=== PATIENT | female | born 1990 | race Caucasian/White ===

== ENCOUNTER → 2017-07-24 01:21 | Observation (INO) ==
--- OUTSIDE RECORDS SUMMARY | 2017-07-23 12:06 | External Medical Summary | Continuity of Care Document ---
:1990 [facility] Address [address] [place], [place] [phone] Phone Care Team Providers Name Role Phone Rosanne Lopes MD Unavailable Unavailable Allergies, Adverse Reactions, Alerts Substance Reaction Severity Status No Known Drug Allergies Unknown Active Medications Medication Instructions Dosage Effective Dates Status Comments (start - stop) Aspir-81 81 mg take 1 tablet by 81 MG - Active tablet,delayed oral route every release day Tylenol Extra take 2 tablet by 1000 MG - Active Strength 500 mg oral route every 6 tablet hours as needed as needed 28 mg take 1 by Oral route Not Available - Active iron-800 mcg every day tablet Problems Condition Effective Dates (start - stop) Clinical Status Supervision of other high risk - pregnancies, first trimester Supervision of other high risk - pregnancies, first trimester Supervision of other high risk - pregnancies, first trimester Less than 8 weeks gestation of - Supervision of other high risk - pregnancies, first trimester Previous Low Transverse - 10 weeks gestation of - Procedures Procedure Date Unknown Results Test Name Date and Time Measure Units Reference Range Abnormal Flag Comments Unknown Advance Directives Directive Yes / No Effective Date File Name Unknown Encounters Encounter Practice Location Reason(s) Diagnoses Date Provider Care Description For Visit Team Members Pb [place] Supervision of other [facility], first 7 700 PO Box trimesterPrevious Low Medical 1522, Transverse [facility] [place], [id number] weeks Shamar Gilman, gestation of 120, , [place], [place], tel:[phone] , [place]. tel:[phone] Pb [place] Aug-2 Joel In Womens 9-201 [facility], 7 700 [address] Medical [address], [place], Shamar Gilman, 120, [id number], [place], tel:[phone] , [place]. tel: [phone] Pb [place] Supervision of other Aug-2 Joel In Womens high risk 3-201 [facility], pregnancies, first 7 700 PO Box trimesterLess than 8 Medical 1522, weeks gestation of [facility], Shamar Gilman, 120, [id number], [email or web address] [place], tel:[phone] , [place]. tel: [phone] Pb [place] Supervision of other Aug-1 Joel In Womens high risk 0-201 [facility], pregnancies, first 7 700 PO Box trimesterSupervision Medical 1522, of other high risk [facility], pregnancies, first Shamar Gilman, trimester 120, , [place], tel:[phone] , [place]. tel: [phone] Family History Family Member Diagnosis Age At Onset Paternal Grandmother Hypertension Maternal Grandmother Hypertension Maternal Grandmother Thyroid Disorder Maternal Grandfather Lung Disease Maternal Grandmother Cardiovascular Disease Mother Thyroid Disorder Mother Hypertension Immunizations Vaccine Date Status Comments Unknown Payers Payer name Insurance type Covered alliance party ID Authorization(s) [facility] CI [id number] Social History Type Description Quantity Date Captured Unknown Vital Signs Date / Height Weight BMI Pulse Blood Temperature Respiratory Body Head BMI Time: Rate Pressure Rate Surface Circumference percentile Area Unknown Chief Complaint And Reason For Visit Unknown Chief Complaint And Reason For Visit Reason For Referral Reason For Referral Unknown Plan Of Care Date Type Action Status Appointment [facility] BOOKED Date Type Problem Goal Intervention Status Start Date Unknown. History Of Present Illness Encounter Date Complaint History Of Present Illness This patient has no known history of present illness Functional Status Encounter Date Functional Assessment Cognitive Assessment Unknown Medications Administered Medication Instructions Dosage Effective Dates (start - stop) Status Comments Drug Treatment Unknown Instructions Date Instruction Additional Information HIV and other routine tests risk factors identified by history anticipated course of care nutrition and weight gain counseling, special diet toxoplasmosis precautions (cats / raw meat) sexual activity exercise indications for ultrasound influenza vaccine environmental / work hazards travel use of any medications (including supplements, vitamins, herbs, OTC drugs) domestic violence seat belt use childbirth classes / hospital facilities hospital registration genetic testing Zika virus assessment & precautions
--- OUTSIDE RECORDS SUMMARY | 2017-07-23 12:06 | External Medical Summary ---
:1991 Author Organization [facility]. Summary purpose CCDA Sent to [facility] Chief Complaint and Reason for Visit Admit Diagnosis 1 JOINT PAIN-ANKLE Problem list No authorized problems tracked for continuity of care are available for this visit. Encounters No authorized problems tracked for encounter diagnoses are available for this visit. Medications Home Medications Medication Directions Started Status Source Depo 1 unknown injection See medication notes Current every 3 months ibuprofen 200 mg capsule 800 mg oral As Needed Every 8 Hours Current Allergies, adverse reactions, alerts Allergen Category Ingredient Status Reaction Severity Onset No Known Allergies No Known Allergies No Known Allergies Active Immunizations No immunizations recorded for this patient visit Relevant diagnostic tests and/or laboratory data No authorized results are available for this patient visit History of procedures Procedure Code Code Type Description Date Performed Performing Physician L4350 CPT-4 ANKLE CONTROL ORTHO PRE 01-05-2015 [facility] OTS 24590 CPT-4 X-RAY EXAM OF ANKLE 01-05-2015 [facility] 10017 CPT-4 APPLICATION LOWER LEG 01-05-2015 [facility] SPLINT 25301 CPT-4 EMERGENCY DEPT VISIT 01-05-2015 [facility] Functional status Cognitive Status Finding Observation Time Level of Consciousne Alert 76-42-875469:00 Oriented to Person Yes 83-02-032790:[address] Yes 15-50-959052:00 Oriented to Time Yes 86-02-081646:00 Vital signs Type Value Date Respirations 20 14-84-557137:50 Pulse 96 36-22-765329:50 O2 Saturation 98% 47-55-615376:50 Systolic Blood Press 132mm/HG 56-78-604879:50 Diastolic Blood Pres 82mm/HG 35-47-273013:50 Height 65in 08-75-888823:50 Weight 160LB 98-06-591986:50 Social history Type Value Smoking Status FORMER SMOKER Treatment Plan No treatment plan text is available for this visit. Hospital discharge instructions No discharge instruction text is available for this visit.
--- OUTSIDE RECORDS SUMMARY | 2017-07-23 12:06 | External Medical Summary | Continuity of Care Document ---
:1990 Author Organization [facility] Address [address] [place] [phone] Phone Care Team Providers Name Role Phone Rosanne Lopes MD Unavailable Unavailable Allergies, Adverse Reactions, Alerts Substance Reaction Severity Status No Known Drug Allergies Unknown Active Medications Medication Instructions Dosage Effective Dates Status Comments (start - stop) Aspir-81 81 mg take 1 tablet by 81 MG - Active tablet,delayed oral route every release day 28 mg take 1 by Oral route Not Available - Active iron-800 mcg every day tablet Tylenol Extra take 2 tablet by 1000 MG - Active Strength 500 mg oral route every 6 tablet hours as needed as needed Problems Condition Effective Dates (start - stop) [...] weeks gestation of - Procedures Procedure Date OB Visit No Charge Results Test Name Date and Time Measure Units Reference Range Abnormal Flag Comments Panel Description: CHLAMYDIA/N. GONORRHOEAE RNA, TMA CHLAMYDIA NOT DETECTED NOT DETECTED N TRACHOMATIS RNA, 16:27:00 TMA NEISSERIA NOT DETECTED NOT DETECTED N GONORRHOEAE RNA, 16:27:00 TMA [id number] SEE NOTE This test was 16:27:00 performed using the APTIMA COMBO2 Assay([employer] The analytical performance characteristics of this assay, when used to test SurePath specimens havebeen determined by [email or web address]. REPORT COMMENT:FASTING:UNKNO WNTest performed at [facility] [id number] [place] [address]Obrsoylw: CHAS MIKE DO,MPH Advance Directives Directive Yes / No Effective Date File Name Unknown Encounters Encounter Practice Location Reason(s) Diagnoses Date Provider Care Description For Visit Team Members [facility] Supervision of other Sep-0 Joel In Womens high risk 6-201 [facility], pregnancies, first 7 700 PO Box trimesterPrevious Low Medical 1522, Transverse [facility], [id number] weeks Shamar Gilman, gestation of 120, , [facility] [place], tel:[phone] , [place]. tel: [phone] [facility] Supervision of other Aug-2 Joel In Womens high risk 3-201 [facility], pregnancies, first 7 700 PO Box trimesterLess than 8 Medical 1522, weeks gestation of [facility], Shamar Gilman, 120, [id number], [facility] [place], tel:[phone] , [place]. tel: [phone] [facility] Supervision of other Aug-1 Joel In Womens high risk 0-201 [facility], pregnancies, first 7 700 PO Box trimesterSupervision Medical 1522, of other high risk [facility], pregnancies, first Shamar Gilman, trimester 120, , [facility] [place], tel:[phone] , [place]. tel: [phone] Family History Family Member Diagnosis Age At Onset Paternal Grandmother Hypertension Maternal Grandmother Hypertension Maternal Grandmother Thyroid Disorder Maternal Grandfather Lung Disease Maternal Grandmother Cardiovascular Disease Mother Thyroid Disorder Mother Hypertension Immunizations Vaccine Date Status Comments Unknown Payers Payer name Insurance type Covered democrat ID Authorization(s) [facility] CI [id number] Social History Type Description Quantity Date Captured Alcohol Use Details Unknown Caffeine Use Details Unknown Tobacco Use Status Unknown Smoking Status Never smoker Vital Signs Date / Height Weight BMI Pulse Blood Temperature Respiratory Body Head BMI Time: Rate Pressure Rate Surface Circumference percentile Area 164.80 27.0 133/82 2017 lbs 9 mm[Hg] 5:23 kg/m PM eter (2) Chief Complaint And Reason For Visit Unknown [...]
--- OUTSIDE RECORDS SUMMARY | 2017-07-23 12:06 | External Medical Summary | Continuity of Care Document ---
:1990 Author Organization [facility] Address [address] [place] [phone] Phone Care Team Providers Name Role Phone [...] Less than 8 weeks gestation of - Suprvsn of preg w poor reprodctv or - obstet hx, second tri Supervision of other high risk - pregnancies, second trimester Previous Low Transverse - 14 weeks gestation of - Suprvsn of preg w poor reprodctv or - obstet hx, second tri Supervision of other high risk - pregnancies, second trimester Previous Low Transverse - 19 weeks gestation of - Suprvsn of preg w poor reprodctv or - obstet hx, second tri Supervision of other high risk - pregnancies, second trimester Previous Low Transverse - 22 weeks gestation of - Suprvsn of preg w poor reprodctv or - obstet hx, second tri Supervision of other high risk - pregnancies, second trimester Previous Low Transverse - 19 weeks gestation of - Supervision of other [...] Description For Visit Team Members Pb [place] Suprvsn of preg w Nov-2 Joel In Womens poor reprodctv or 7-201 [facility], obstet hx, second 7 700 [address] triSupervision of Medical 1522, other high risk [facility] pregnancies, second Shamar Gilman, trimesterPrevious 120, [id number], Low Transverse [place], [place] C-[id number] weeks [place], tel:[phone] gestation of [phone] , [place]. tel: [phone] Pb [place] Nov-1 Joel In Womens 5-201 [facility], 7 700 [address] Medical [address], [facility], Shamar Gilman, 120, [id number], [place], tel:[phone] [id number] , [place]. tel: [phone] Pb [place] Suprvsn of preg w Nov-0 Joel In Womens poor reprodctv or 8-201 [facility], obstet hx, second 7 700 PO Box triSupervision of Medical 1522, other high risk [facility] pregnancies, second Shamar Gilman, trimesterPrevious 120, [id number], Low Transverse [place], [place] C-Uveeerw45 weeks [place], tel:[phone] gestation of [phone] [id number] , [place]. tel: [phone] Pb [place] Suprvsn of preg w Nov-0 Joel In Womens Ultrasound poor reprodctv or 8-201 [facility], obstet hx, second 7 700 PO Box triSupervision of Medical 1522, other high risk [facility] [place], pregnancies, second Shamar Gilman, trimesterPrevious 120, [id number], Low Transverse [place], C-Wjhhjta65 weeks [place], tel:[phone] gestation of [phone] [id number] , [place]. tel: [phone] Pb [place] Suprvsn of preg w Oct-0 Joel In Womens poor reprodctv or 4-201 [facility], obstet hx, second 7 700 PO Box triSupervision of Medical 1522, other high risk [facility] [place], pregnancies, second Shamar Gilman, trimesterPrevious 120, [id number], Low Transverse [place], C-Fazfqgl11 weeks [place], tel:+ gestation of [phone] [address] , [place]. tel: [phone] Pb [place] Supervision of Sep-0 Joel In Womens other high risk 6-201 [facility], pregnancies, first 7 700 PO Box trimesterPrevious Medical 1522, Low Transverse [facility], C-[id number] weeks Shamar Gilman, gestation of 120, , [place], tel:[phone] , [place]. tel: [phone] Pb [place] Supervision of Aug-2 Joel In Womens other high risk 3-201 [facility], pregnancies, first 7 700 PO Box trimesterLess than Medical 1522, 8 weeks gestation [facility], of Shamar Gilman, 120, , [place], tel:[phone] , [place]. tel: [phone] Pb [place] Supervision of Aug-1 Joel In Womens other high risk 0-201 [facility], pregnancies, first 7 700 PO Box trimesterSupervisio Medical 1522, n of other high [facility] [place], risk pregnancies, Shamar Gilman, first trimester 120, [id number], [place], tel:[phone] , [place]. tel: [phone] Family History Family Member Diagnosis Age At Onset Paternal Grandmother Hypertension Maternal Grandmother Hypertension Maternal Grandmother Thyroid Disorder Maternal Grandfather Lung Disease Maternal Grandmother Cardiovascular Disease Mother Thyroid Disorder Mother Hypertension Immunizations Vaccine Date Status Comments Unknown Payers Payer name Insurance type Covered alliance party ID Authorization(s) R CI [id number] Social History Type Description Quantity Date Captured Unknown Vital Signs Date / Height Weight BMI Pulse Blood Temperature Respiratory Body Head BMI Time: Rate Pressure Rate Surface Circumference percentile Area Unknown Chief Complaint And Reason For Visit Unknown Chief Complaint And Reason For Visit Reason For Referral Reason For Referral Unknown Plan Of Care Date Type Action Status Appointment [facility] BOOKED Future Order: Radiology Order Complete OB Ultrasound > 14 Ordered Weeks ([id number]) Date Type Problem Goal Intervention Status Start [...]
--- OUTSIDE RECORDS SUMMARY | 2017-07-23 12:06 | External Medical Summary | Continuity of Care Document ---
:1991 Author Organization [facility] Address [address] [place], [place] [phone] Phone Care Team Providers Name Role Phone Rosanne Lopes MD Unavailable Unavailable Allergies, Adverse Reactions, Alerts Substance Reaction Severity Status No Known Drug Allergies Unknown Active Medications Medication Instructions Dosage Effective Dates Status Comments (start - stop) Aspir-81 81 mg take 1 tablet by oral 81 MG - Active tablet,delayed route every day release Tylenol Extra take 2 tablet by oral 1000 MG - Active Strength 500 mg route every 6 hours tablet as needed as needed Problems Condition Effective Dates (start - stop) Clinical Status Supervision of other high risk - pregnancies, first trimester Supervision of other high risk - pregnancies, first trimester Procedures Procedure Date No Charge Sonogram No Charge Office Visit Results Test Name Date and Time Measure Units Reference Range Abnormal Flag Comments Unknown Advance Directives Directive Yes / No Effective Date File Name Unknown Encounters Encounter Practice Location Reason(s) Diagnoses Date Provider Care Description For Visit Team Members Pb [place] early Supervision of other Joel In [facility] high risk 0-201 [facility], (chief pregnancies, first 7 700 PO Box complaint) trimesterSupervision Medical 1522, of other high risk [facility] [place], pregnancies, first Shamar Gilman, trimester 120, [id number], [facility] [place], tel:[phone] [id number] , . tel:[phone] Family History Family Member Diagnosis Age At Onset Paternal Grandmother Hypertension Maternal Grandmother Hypertension Maternal Grandmother Thyroid Disorder Maternal Grandfather Lung Disease Maternal Grandmother Cardiovascular Disease Mother Thyroid Disorder Mother Hypertension Immunizations Vaccine Date Status Comments Unknown Payers Payer name Insurance type Covered alliance party ID Authorization(s) R CI [id number] Social History Type Description Quantity Date Captured Alcohol Use Details Unknown Caffeine Use Details Unknown Tobacco Use Status Never smoked tobacco Smoking Status Never smoker Non-Smoking Tobacco Use : No Details Available : No Details Available Details Vital Signs Date / Height Weight BMI Pulse Blood Temperature Respiratory Body Head BMI Time: Rate Pressure Rate Surface Circumference percentile Area 65.00 162.80 27.0 134/ in lbs 9 mm[Hg] 2:25 kg/m PM eter (2) Chief Complaint And Reason For Visit Most recent encounter only, dated '03/23/2017 14:10'. early ( chief complaint). Description: LMP 02/03/17. Prior delivered by [facility]CS 2012 at 26 weeks due to severe preeclampsia and severe IUGR. Baby lived a day. Pt is happy about this and feels well, just tired. Reason For Referral Reason For Referral Unknown Plan Of Care Date Type Action Status Appointment [facility] BOOKED Date Type Problem Goal Intervention Status Start Date Unknown. History Of Present Illness Encounter Date Complaint History Of Present Illness early LMP 02/03/17. Prior delivered by [facility]CS 2012 at 26 weeks due to severe preeclampsia and severe IUGR. Baby lived a day. Pt is happy about this and feels well, just tired. Functional Status Encounter Date Functional Assessment Cognitive Assessment Unknown Medications Administered Medication Instructions Dosage Effective Dates (start - stop) Status Comments Drug Treatment Unknown Instructions Date Instruction Additional Information Unknown
--- OUTSIDE RECORDS SUMMARY | 2017-07-23 12:06 | External Medical Summary | Continuity of Care Document ---
:1990 Author Organization [facility] Address [address] [place] [phone] Phone Care Team Providers Name Role Phone [...] other high risk - pregnancies, first trimester Suprvsn of preg w poor reprodctv or [...] Procedures Procedure Date OB Visit No Charge - [employer] Results Test Name Date and Time Measure Units Reference Range Abnormal Flag Comments Unknown Advance Directives Directive Yes / No Effective Date File Name Unknown Encounters Encounter Practice Location Reason(s) Diagnoses Date Provider Care Description For Visit Team Members Pb [place] Suprvsn of preg w Nov-2 Joel In Womens poor reprodctv or 7-201 [facility], obstet hx, second 7 700 [address] Box triSupervision of Medical 1522, other high risk [facility] [place], pregnancies, second Shamar Gilman, trimesterPrevious 120, , Low Transverse [place], [place] C-Wahywjy93 weeks [place], tel:[phone] gestation [phone] [id number] , [place]. tel:[phone] Pb [place] Suprvsn of preg w Nov-0 Joel In Womens poor reprodctv or 8-201 [facility], obstet hx, second 7 700 PO Box triSupervision of Medical 1522, other high risk [facility] [place], pregnancies, second Shamar Gilman, trimesterPrevious 120, , Low Transverse [place], [place] C-Rxcnxot72 weeks [place], tel:[phone] gestation [phone] [id number] , [place]. tel:[phone] Pb [place] Suprvsn of preg w Nov-0 Joel In Womens Ultrasound poor reprodctv or 8-201 [facility], obstet hx, second 7 700 PO Box triSupervision of Medical 1522, other high risk [facility] [place], pregnancies, second Shamar Gilman, trimesterPrevious 120, [id number], Low Transverse [place], [place] C-Uqtqiyc08 weeks [place], tel:[phone] gestation of [phone] [id number] , [place]. tel: [phone] Pb [place] of preg w Oct-0 Joel In Womens poor reprodctv or 4-201 [facility], obstet hx, second 7 700 PO Box triSupervision of Medical 1522, other high risk [facility], pregnancies, second Shamar Gilman, trimesterPrevious 120, [id number], Low Transverse [place], C-Zauimqg71 weeks [place], tel:+ gestation of [phone] [address] , [place]. tel: [phone] Pb [place] Supervision of Sep-0 Joel In Womens other high risk 6-201 [facility], pregnancies, first 7 700 PO Box trimesterPrevious Medical 1522, Low Transverse [facility], C-Kuwlpuu19 weeks Shamar Gilman, gestation of 120, , [place], [place], tel:[phone] , [place]. tel: [phone] Pb [place] Supervision of Aug-2 Joel In Womens other high risk 3-201 [facility], pregnancies, first 7 700 PO Box trimesterLess than Medical 1522, 8 weeks gestation [facility], of Shamar Gilman, 120, [id number], [facility] [place], tel:[phone] , [place]. tel: [phone] Pb [place] Supervision of Aug-1 Joel In Womens other high risk 0-201 [facility], pregnancies, first 7 700 PO Box trimesterSupervisio Medical 1522, n of other high [facility] [place], risk pregnancies, Shamar Gilman, first trimester 120, [id number], [place], tel: [phone] , [place]. tel: [phone] Family History Family Member Diagnosis Age At Onset Paternal Grandmother Hypertension Maternal Grandmother Hypertension Maternal Grandmother Thyroid Disorder Maternal Grandfather Lung Disease Maternal Grandmother Cardiovascular Disease Mother Thyroid Disorder Mother Hypertension Immunizations Vaccine Date Status Comments Unknown Payers Payer name Insurance type Covered libertarian ID Authorization(s) [facility] [id number] Social History Type Description Quantity Date Captured Alcohol Use Details No Caffeine Use Details Unknown Tobacco Use Status Never smoked tobacco Smoking Status Never smoker Vital Signs Date / Height Weight BMI Pulse Blood Temperature Respiratory Body Head BMI Time: Rate Pressure Rate Surface Circumference percentile Area 166.40 27.6 124/79 -2017 lbs 9 mm[Hg] 4:42 kg/m PM eter (2) Chief Complaint And Reason For Visit Unknown Chief Complaint And Reason For Visit Reason For Referral Reason For Referral Unknown Plan Of Care Date Type Action Status Appointment [facility] BOOKED Future Order: Radiology Order Complete OB Ultrasound > 14 Ordered Weeks ([id number]) Date Type Problem Goal Intervention Status Start [...]
--- OUTSIDE RECORDS SUMMARY | 2017-07-23 12:07 | External Medical Summary | Continuity of Care Document ---
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 Advance Directives Directive Yes / No Effective Date File Name Unknown Encounters Encounter Practice Location Reason(s) Diagnoses Date Provider Care Description For Visit Team Members [facility]vision of other [facility] high [facility] 6-[facility], first 7 700 PO Box trimesterPrevious Low Medical 1522, [facility] [place], C-Zbtnkhn19 weeks Shamar Gilman, [facility] 120, , [facility] [place], tel: [phone] , [place]. tel: [phone] [facility] Supervision of other Mar- Joel In Womens high risk 3-201 [facility] [place], pregnancies, first 7 700 PO Box trimesterLess than 8 Medical 1522, weeks gestation of [facility], Shamar Gilman, 120, , [facility] [place], tel: [phone] , [place]. tel: [phone] Pb [place] Supervision of other Mar- [place] In Womens high risk 0-201 [facility] [place], pregnancies, first 7 700 PO Box trimesterSupervision Medical 1522, of other high risk [facility] [place], pregnancies, first Shamar Gilman, trimester 120, , [facility] [place], tel:[phone] , [place]. tel: [phone] Family History Family Member Diagnosis Age At Onset Paternal Grandmother Hypertension Maternal Grandmother Hypertension Maternal Grandmother Thyroid Disorder Maternal Grandfather Lung Disease Maternal Grandmother Cardiovascular Disease Mother Thyroid Disorder Mother Hypertension Immunizations Vaccine Date Status Comments Unknown Payers Payer name Insurance type Covered libertarian ID Authorization(s) [facility] CI [id number] Social History Type Description Quantity Date Captured Alcohol Use Details No Caffeine Use Details Unknown Tobacco Use Status Never smoked tobacco Smoking Status Never smoker Non-Smoking Tobacco Use : No Details Available : No Details Available Details Vital Signs Date / Height Weight BMI Pulse Blood Temperature Respiratory Body Head BMI Time: Rate Pressure Rate Surface Circumference percentile Area 162.70 27.0 131/ lbs 7 mm[Hg] 3:46 kg/m PM eter (2) Chief Complaint And [...]
--- OUTSIDE RECORDS SUMMARY | 2017-07-23 12:07 | External Medical Summary | Continuity of Care Document ---
:1991 Author Organization [facility] Address [address] [place] [phone] Phone Care Team Providers Name Role Phone [...] weeks gestation of - Procedures Procedure Date No Charge Sonogram No Charge Office Visit OB Prepayment Agreement Results Test Name Date and Time Measure Units Reference Range Abnormal Flag Comments Panel Description: OBSTETRIC PANEL WHITE BLOOD CELL 10.3 Thousand/uL 3.8-10.8 N COUNT 14:56:00 RED BLOOD CELL 4.82 Million/uL 3.80-5.10 N COUNT 14:56:00 HEMOGLOBIN 13.7 g/dL 11.7-15.5 N 14:56:00 HEMATOCRIT 40.3 % 35.0-45.0 N 14:56:00 MCV 83.6 fL 80.0-100.0 N 14:56:00 MCH 28.4 pg 27.0-33.0 N 14:56:00 MCHC 34.0 g/dL 32.0-36.0 N 14:56:00 RDW 12.5 % 11.0-15.0 N 14:56:00 PLATELET COUNT 276 Thousand/uL 140-400 N 14:56:00 MPV 10.6 fL 7.5-12.5 N 14:56:00 ABSOLUTE 6355 cells/uL 9365-9856 N NEUTROPHILS 14:56:00 ABSOLUTE 3018 cells/uL 850-3900 N LYMPHOCYTES 14:56:00 ABSOLUTE 700 cells/uL 200-950 N MONOCYTES 14:56:00 ABSOLUTE 196 cells/uL 15-500 N EOSINOPHILS 14:56:00 ABSOLUTE 31 cells/uL 0-200 N BASOPHILS 14:56:00 NEUTROPHILS 61.7 % N 14:56:00 LYMPHOCYTES 29.3 % N 14:56:00 MONOCYTES 6.8 % N 14:56:00 EOSINOPHILS 1.9 % N 14:56:00 BASOPHILS 0.3 % N 14:56:00 ANTIBODY SCREEN, NO ANTIBODIES N RBC W/REFL ID, 14:56:00 DETECTED Reference range TITER AND AG No antibodies detected This assay is a screening test for the detection of red blood cell antibodies. The test is not to be used for pretransfusion screening or for the medical management of an alloimmunized . ABO GROUP A 14:56:00 RH TYPE RH(D) 14:56:00 POSITIVE RPR (DX) W/REFL NON-REACTIVE NON-REACTIV N TITER AND 14:56:00 E CONFIRMATORY TESTING HEPATITIS B NON-REACTIVE NON-REACTIV N SURFACE ANTIGEN 14:56:00 E RUBELLA ANTIBODY 1.05 index N Index (IGG) 14:56:00 Interpretation ----- <0.90 Not consistent with Immunity 0.90-0.99 Equivocal > or=1.00 Consistent with Immunity The presence of rubella IgG antibody suggests immunization or past or current infection withrubella virus.Test performed at [facility] [id number] [place] [id number] r: CHAS MIKE DO,MPH Panel Description: HIV 1/2 ANTIGEN/ANTIBODY,FOURTH GENERATION W/RFL HIV NON-REACTIVE NON-REACTIVE N HIV-1 antigen and HIV-1/HIV- 2 antibodies were AG/AB, 14:56:00 notdetected. There is no laboratory evidence of 4TH GEN HIVinfection. PLEASE NOTE: This information has been disclosed toyou from records whose confidentiality may beprotected by state law. If your state requires suchprotection, then the state law prohibits you frommaking any further disclosure of the informationwithout the specific written consent of the personto whom it pertains, or as otherwise permitted by law.A general authorization for the release of medical orother information is NOT sufficient for this purpose. For additional information please refer tohttp://education.Populis/faq/ZDZ618(This link is being provided for informational/educational purposes only.) The performance of this assay has not been clinicallyvalidated in patients less than 2 years old. Test performed at [facility] [address] [address]Errolllp: CHAS MIKE DO,MPH Panel Description: TSH W/REFLEX TO FT4 TSH W/REFLEX TO FT4 14:56:00 0.81 mIU/L N Reference Range > or=20 Years 0.40-4.50 Ranges First trimester 0.26-2.66 Second trimester 0.55-2.73 Third trimester 0.43-2.91Test performed at [facility] [address] [address]Corbeclz: CHAS MIKE DO,MPH Panel Description: Bacteria identified in Urine by Culture CULTURE, URINE, 15:09:00 SEE NOTE CULTURE, URINE, ROUTINE ROUTINE MICRO NUMBER: [id number] TEST STATUS: FINAL SPECIMEN SOURCE: URINE SPECIMEN QUALITY: ADEQUATE RESULT: Single organism less than 10,000 CFU/mL isolated. These organisms, commonly found on external and internal genitalia, are considered colonizers. No further testing performed.REPORT COMMENT:RTest performed at [facility] [id number] [place] [address]Znfbnlbt: CHAS MIKE DO,MPH Advance Directives Directive Yes / No Effective Date File Name Unknown Encounters Encounter Practice Location Reason(s) Diagnoses Date Provider Care Description For Visit Team Members [facility] Supervision of other [place] In Womens high risk 3-201 [facility] [place], pregnancies, first 7 700 PO Box trimesterLess than 8 Medical 1522, weeks gestation of [facility] Shamar Gilman, 120, , [facility] [place], tel:[phone] , [place]. tel: [phone] Pb hinds Supervision of other Mar- Joel In Womens high risk 0-201 Bhavani. [facility], (chief pregnancies, first 7 700 [address] complaint) trimesterSupervision Medical 1522, of other high risk [facility], pregnancies, first Shamar Gilman, trimester 120, , [facility] [place], tel: [phone] , [place]. tel: [phone] Family History Family Member Diagnosis Age At Onset Paternal Grandmother Hypertension Maternal Grandmother Hypertension Maternal Grandmother Thyroid Disorder Maternal Grandfather Lung Disease Maternal Grandmother Cardiovascular Disease Mother Thyroid Disorder Mother Hypertension Immunizations Vaccine Date Status Comments Unknown Payers Payer name Insurance type Covered libertarian ID Authorization(s) [facility] CI [id number] Social History Type Description Quantity Date Captured Alcohol Use Details Unknown Caffeine Use Details Unknown Tobacco Use Status Never smoked tobacco Smoking Status Never smoker Non-Smoking Tobacco Use : No Details Available : No Details Available Details Vital Signs Date / Height Weight BMI Pulse Blood Temperature Respiratory Body Head BMI Time: Rate Pressure Rate Surface Circumference percentile Area 65.00 162.80 27.0 134/83 -2017 in lbs 9 mm[Hg] 2:25 kg/m PM [...]
--- OUTSIDE RECORDS SUMMARY | 2017-07-23 12:07 | External Medical Summary | Continuity of Care Document ---
:1991 Author Organization [facility] Allergies Active Description Code Type Severity Reaction Onset Reported/ Identified Relationship Clinical to Patient Status Yes No Known 65027 3 N/A N/A Drug 0 Allergies Yes No Known 98403 NK N/A N/A 06/04/2012 Allergies 388 Yes No Known Drug 10/10/2012 Drug Aller Allergies gy Medications Medication Packaging Start Date Stop Date Route Dosage Sig Tablet 03/23/2017 ASPIR 81 take 1 tablet by oral route every day Problems Date Dx Attending Type Code Diagnosis Diagnosed By Coded 12/28/2009 D 305.92 DRUG ABUSE NEC-EPISODIC 01/01/2010 D 307.81 TENSION HEADACHE 06/05/2012 D 008.8 VIRAL ENTERITIS NOS 06/05/2012 A 789.07 ABDOMINAL PAIN GENERALIZ 06/05/2012 D V22.1 SUPERVIS OTH NORMAL PREG 10/08/2012 D 642.40 MILD/NOS PREECLAMP-UNSP 10/10/2012 Nayeli DORMAN, Admitting 642.43 MILD/NOS Yvette B ANZ-KESWP-OR 10/10/2012 Nayeli DORMAN, Final 642.51 SEVERE Yvette B MPI-HXUYJ-MND 10/10/2012 Nayeli DORMAN, Final 644.21 EARLY ONSET Yvette B DELIVERY-DEL 10/10/2012 Nayeli DORMAN, Final 652.01 UNSTABLE Yvette B LIE-DELIVERED 10/10/2012 Nayeli DORMAN, Final 656.51 POOR Yvette B GROWTH-DEL 10/10/2012 Nayeli DORMAN, Final V27.0 DELIVERY-SINGLE Yvette B LIVEBORN 01/05/2015 GRAHAM García 719.47 JOINT PAIN-ANKLE PERCY DORMAN 01/05/2015 GRAHAM García E927.0 OVEREXERTION FROM PERCY DORMAN SUDDEN 06/21/2017 Bhavani Maldonado O09.292 Suprvsn of preg w L poor reprodctv or obstet hx, second tri 06/21/2017 Bhavani Maldonado O09.892 Supervision of L other high risk pregnancies, second trimester 06/21/2017 Bhavani Maldonado O34.211 Previous Low L Transverse 06/21/2017 Bhavani Maldonado Z3A.19 19 weeks gestation L of Procedures Code Description Performed By Performed On GRAHAM DELAROSA MD, 12/28/2009 33079 ROUTINE VENIPUNCTURE JANAE DELAROSA MD, 12/28/2009 62314 COMPREHEN METABOLIC PANEL JANAE DELAROSA MD, 12/28/2009 32095 URINALYSIS, NONAUTO JANAE García W/SCOPE GRAHAM DELAROSA MD, 12/28/2009 68207 COMPLETE CBC, AUTOMATED JANAE DELAROSA MD, 12/28/2009 29629 ELECTROCARDIOGRAM, TRACING JANAE DELAROSA MD, 12/28/2009 53625 EMERGENCY DEPT VISIT JANAE García SPINAL GRAHAM DELAROSA MD, 01/01/2010 33406 FLUID TAP, DIAGNOSTIC JANAE DELAROSA MD, 01/01/2010 76454 COMPREHEN METABOLIC PANEL JANAE DELAROSA MD, 01/01/2010 62116 GLUCOSE OTHER FLUID JANAE García ASSAY GRAHAM DELAROSA MD, 01/01/2010 86868 OF PROTEIN, OTHER JANAE DELAROSA MD, 01/01/2010 72914 COMPLETE CBC, AUTOMATED JANAE García SMEAR, GRAHAM DELAROSA MD, 01/01/2010 80352 GRAM STAIN JANAE García BODY GRAHAM DELAROSA MD, 01/01/2010 18031 FLUID CELL COUNT JANAE DELAROSA MD, 06/04/2012 49037 COMPREHEN METABOLIC PANEL JANAE DELAROSA MD, 06/04/2012 26971 URINALYSIS, AUTO, W/O JANAE García SCOPE ASSAY GRAHAM DELAROSA MD, 06/04/2012 18503 OF AMYLASE JANAE García ASSAY GRAHAM DELAROSA MD, 06/04/2012 82981 OF LIPASE JANAE DELAROSA MD, 06/04/2012 07624 COMPLETE CBC, AUTOMATED JANAE SMITH MD, MERRILL 06/04/2012 39575 THER/PROPH/DIAG IV INF, INIT LUIS DORMAN, MERRILL 06/04/2012 31743 THER/PROPH/DIAG IV INF MERRILL RODRIGEZ MD 06/04/2012 25204 TX/PRO/DX INJ NEW DRUG MERRILL RODRIGEZ MD 06/04/2012 13022 EMERGENCY DEPT VISIT MERRILL SMITH MD 06/04/2012 G0378 HOSPITAL OBSERVATION PER HR FAST MERRILL DORMAN 06/04/2012 J2175 MEPERIDINE HYDROCHL /100 MG FAST MERRILL DORMAN 06/04/2012 J2405 ONDANSETRON HCL INJECTION FAST MERRILL DORMAN 06/05/2012 47037 METABOLIC PANEL TOTAL CA FAST , MERRILL 06/05/2012 61979 COMPLETE CBC, AUTOMATED FAST , MERRILL 10/08/2012 08431 ROUTINE VENIPUNCTURE FAST MERRILL DORMAN 10/08/2012 89266 COMPREHEN METABOLIC PANEL MERRILL SMITH MD 10/08/2012 80528 LACTATE (LD) (LDH) ENZYME ASSAY LUIS DORMAN, MERRILL 10/08/2012 14559 OF BLOOD/URIC ACID MERRILL SMITH MD 10/08/2012 73603 COMPLETE CBC, AUTOMATED MERRILL SMITH MD 10/08/2012 70071 PROTHROMBIN TIME MERRILL SMITH MD 10/08/2012 09775 THROMBOPLASTIN TIME, PARTIAL OSCAR Mcdaniel MD, Yovanny García 10/16/2012 74.1 CERVICAL CD GRAHAM DELAROSA MD, 01/05/2015 80992 APPLICATION LOWER LEG PERCY R SPLINT X-RAY GRAHAM DELAROSA MD, 01/05/2015 44881 EXAM OF ANKLE PERCY R GRAHAM DELAROSA MD, 01/05/2015 52981 EMERGENCY DEPT VISIT PERCY R ANKLE GRAHAM DELAROSA MD, 01/05/2015 L4350 CONTROL ORTHOSI PREFAB PERCY R 06/21/2017 48614 Ultrasnd exam of preg uterus, compl Results Encounters ACCT No. Visit Discharge Status Pt. Type Provider Facility Loc./Unit Complaint Date/Time [id number] 10/10/2012 10/18/2012 DIS Inpatient [id number] 10:20:00 11:55:00 , [facility] on Yvette Bunn [id number] 01/05/2015 01/05/2015 DIS Emergency [facility] Adriana ER 15:50:00 16:54:00 [place] Medina MD, [facility] [id number] 10/08/2012 Document 16:02:00 Registrat ion [id number] 06/04/2012 Document 15:55:00 Registrat ion [id number] 06/04/2012 Document 13:50:00 Registrat ion [id number] 01/01/2010 Document 11:35:00 Registrat ion [id number] 12/28/2009 Document 06:10:00 Registrat ion [id number] 07/10/2017 07/10/2017 CLS Outpatien Joel, 16:00:00 23:59:59 t Bhavani L [id number] 06/28/2017 06/28/2017 CLS Outpatien Joel, 16:18:00 23:59:59 t Bhavani L [id number] 06/21/2017 06/21/2017 CLS Outpatien Joel, 16:15:00 23:59:59 t Bhavani L [id number] 06/21/2017 06/21/2017 CLS Outpatien Joel, 15:45:00 23:59:59 t Bhavani L [id number] 05/17/2017 05/17/2017 CLS Outpatien Joel, 16:15:00 23:59:59 t Bhavani L [id number] 04/19/2017 04/19/2017 CLS Outpatien Joel, 15:45:00 23:59:59 t Bhavani L [id number] 04/11/2017 04/11/2017 CLS Outpatien Joel, 15:48:00 23:59:59 t Bhavani L [id number] 04/05/2017 04/05/2017 CLS Outpatien Joel, 15:55:00 23:59:59 t Bhavani L [id number] 03/23/2017 03/23/2017 CLS Outpatien Joel, 14:10:00 23:59:59 t Bhavani L
--- OUTSIDE RECORDS SUMMARY | 2017-07-23 12:07 | External Medical Summary | Continuity of Care Document ---
:1991 Author Organization [facility] Address [address] [place] [phone] Phone Care Team Providers Name Role Phone [...] Transverse - 14 weeks gestation of - Supervision of other [...] Reference Range Abnormal Flag Comments Panel Description: COMPREHENSIVE METABOLIC PANEL GLUCOSE 86 mg/dL 65-99 N 16:12:00 Fasting reference interval UREA NITROGEN 12 mg/dL 7-25 N (BUN) 16:12:00 CREATININE 0.65 mg/dL 0.50-1.10 N 16:12:00 eGFR NON-AFR. 123 mL/min/1.7 > OR=60 N TUVALUAN 16:12:00 3m2 eGFR 142 mL/min/1.7 > OR=60 N TUVALUAN 16:12:00 3m2 BUN/CREATININE NOT APPLICABLE (calc) 6-22 RATIO 16:12:00 SODIUM 137 mmol/L 135-146 N 16:12:00 POTASSIUM 4.2 mmol/L 3.5-5.3 N 16:12:00 CHLORIDE 104 mmol/L 98-110 N 16:12:00 CARBON DIOXIDE 24 mmol/L 20-31 N 16:12:00 CALCIUM 9.7 mg/dL 8.6-10.2 N 16:12:00 PROTEIN, TOTAL 6.2 g/dL 6.1-8.1 N 16:12:00 ALBUMIN 3.7 g/dL 3.6-5.1 N 16:12:00 GLOBULIN 2.5 g/dL 1.9-3.7 N 16:12:00 (calc) ALBUMIN/GLOBULIN 1.5 (calc) 1.0-2.5 N RATIO 16:12:00 BILIRUBIN, TOTAL 0.3 mg/dL 0.2-1.2 N 16:12:00 ALKALINE 66 U/L 33-115 N PHOSPHATASE 16:12:00 AST 12 U/L 10-30 N 16:12:00 ALT 11 U/L 6-29 N Test performed 16:12:00 at [facility] [id number] [place] [id number] or: CHAS MIKE DO,MPH Panel Description: CREATININE CLEARANCE CREATININE 0.65 mg/dL 0.50-1.10 N 16:12:00 eGFR NON-AFR. 123 mL/min/1.73m > OR=60 N TUVALUAN 16:12:00 2 eGFR 142 mL/min/1.73m > OR=60 N TUVALUAN 16:12:00 2 CREATININE, 24 1.53 g/24 h 0.63-2.50 N HOUR URINE 16:12:00 BODY SURFACE AREA 1.81 16:12:00 CREATININE 156 mL/min 75-115 H CLEARANCE 16:12:00 HEIGHT FEET 5 ft 16:12:00 HEIGHT INCHES 5 in 16:12:00 WEIGHT POUNDS 162 Test performed at 16:12:00 [facility] [id number] [place] [id number] : CHAS MIKE DO,MPH Panel Description: PROTEIN, TOTAL, 24 HOUR URINE (W/O CREATININE) PROTEIN, TOTAL, 100 mg/24 h <150 N TOTAL URINE VOLUME: 24 HR UR 16:12:00 1000/24REPORT COMMENT:FASTING:NOTest performed at [facility] [address] [address]Lgracvkh: CHAS MIKE DO,MPH Advance Directives Directive Yes / No Effective Date File Name Unknown Encounters Encounter Practice Location Reason(s) Diagnoses Date Provider Care Description For Visit Team Members Pb Millanvsn of preg w Oct-0 Joel In Womens poor reprodctv or 4-201 [facility], obstet hx, second 7 700 PO Box triSupervision of Medical 1522, other high risk [facility], pregnancies, second Shamar Gilman, trimesterPrevious Low 120, [id number], Transverse [facility] C-Navzygy62 weeks [place], tel:[phone] [place] [phone] , [place]. tel:[phone] Pb [place] Supervision of other Sep-0 Joel In Womens high risk 6-201 [facility], pregnancies, first 7 700 PO Box trimesterPrevious Low Medical 1522, Transverse [facility], C-Ijligri21 weeks Shamar Gilman, gestation of 120, [id number], [facility] [place], tel: [phone] , . tel: [phone] [facility] Supervision of other Mar- Joel In Womens high risk 3-201 [facility]. [facility], pregnancies, first 7 700 PO Box trimesterLess than 8 Medical 1522, weeks gestation of [facility] [place], Shamar Gilman, 120, , [facility] [place], tel: [phone] , . tel: [phone] Pb [place] Supervision of other Mar- Joel In Womens high risk 0-201 [facility], pregnancies, first 7 700 PO Box trimesterSupervision Medical 1522, of other high risk [facility] [place], pregnancies, first Shamar Gilman, trimester 120, , [facility] [place], tel: [phone] , . tel: [phone] Family History Family Member Diagnosis Age At Onset Paternal Grandmother Hypertension Maternal Grandmother Hypertension Maternal Grandmother Thyroid Disorder Maternal Grandfather Lung Disease Maternal Grandmother Cardiovascular Disease Mother Thyroid Disorder Mother Hypertension Immunizations Vaccine Date Status Comments Unknown Payers Payer name Insurance type Covered green party ID Authorization(s) [facility] CI [id number] Social History Type Description Quantity Date Captured Alcohol Use Details No Caffeine Use Details Unknown Tobacco Use Status Unknown Smoking Status Never smoker Vital Signs Date / Height Weight BMI Pulse Blood Temperature Respiratory Body Head BMI Time: Rate Pressure Rate Surface Circumference percentile Area 162.50 27.0 131/78 2017 lbs 4 mm[Hg] 3:53 kg/m PM eter (2) Chief Complaint And Reason For Visit Unknown Chief Complaint And Reason For Visit Reason For Referral Reason For Referral Unknown Plan Of Care Date Type Action Status Appointment [facility] BOOKED Appointment [facility] BOOKED Date Type Problem [...]
--- OUTSIDE RECORDS SUMMARY | 2017-07-23 12:07 | External Medical Summary | Continuity of Care Document ---
:1991 Author Organization [facility] Address [address] [place] [phone] Phone Care Team Providers Name Role Phone [...] Transverse - 22 weeks gestation of - Supervision of other high risk - pregnancies, first trimester Previous Low Transverse - 10 weeks gestation of - Procedures Procedure Date Ultrasound exam of preg uterus, complete Results Test Name Date and Time Measure [...] of Medical 1522, other high risk [facility], pregnancies, second Shamar Gilman, trimesterPrevious 120, , Low Transverse [place], [place] C-Rjszuly79 weeks [place], tel:[phone] gestation [phone] [id number] , [place]. tel:[phone] Pb [place] Suprvsn of preg w Nov-0 [place] In Womens poor reprodctv or 8-201 [facility], obstet hx, second 7 700 PO Box triSupervision of Medical 1522, other high risk [facility], pregnancies, second Shamar Gilman, trimesterPrevious 120, , Low Transverse [place], [place] C-Uagenza97 weeks [place], tel:[phone] gestation of [phone] [id number] , [place]. tel:[phone] Pb [place] Suprvsn of preg w Nov-0 Joel In Womens Ultrasound poor reprodctv or 8-201 [facility], obstet hx, second 7 700 PO Box triSupervision of Medical 1522, other high risk [facility], pregnancies, second Shamar Gilman, trimesterPrevious 120, [id number], Low Transverse [place], [place] C-Zqgyizq66 weeks [place], tel:[phone] gestation of [phone] , [place]. tel: [phone] Pb Millanvsn of preg w Oct-0 Joel In Womens poor reprodctv or 4-201 Bhavani. [facility], obstet hx, second 7 700 PO Box triSupervision of Medical 1522, other high risk [facility], pregnancies, second Shamar Gilman, trimesterPrevious 120, [id number], Low Transverse [place], C-Jwjdqnu50 weeks [place], tel:[phone] gestation of [phone] , [place]. tel: [phone] Pb [place] Supervision of Sep-0 Joel In Womens other high risk 6-201 Bhavani. [facility], pregnancies, first 7 700 PO Box trimesterPrevious Medical 1522, Low Transverse [facility], C-Xdjlkqa03 weeks Shamar Gilman, gestation of 120, , [place], [place], tel:[phone] , [place]. tel: [phone] Pb [place] Supervision of Aug-2 Joel In Womens other high risk 3-201 Bhavani. [facility], pregnancies, first 7 700 PO Box trimesterLess than Medical 1522, 8 weeks gestation [facility], of Shamar Gilman, 120, [id number], [facility] [place], tel:[phone] , [place]. tel: [phone] Pb [place] Supervision of Aug-1 Joel In Womens other high risk 0-201 Bhavani. Health [facility], pregnancies, first 7 700 PO Box trimesterSupervisio Medical 1522, n of other high [facility], risk pregnancies, Shamar Gilman, first trimester 120, [id number], [place], tel: [phone] , [place]. tel: [phone] Family History Family Member Diagnosis Age At Onset Paternal Grandmother Hypertension Maternal Grandmother Hypertension Maternal Grandmother Thyroid Disorder Maternal Grandfather Lung Disease Maternal Grandmother Cardiovascular Disease Mother Thyroid Disorder Mother Hypertension Immunizations Vaccine Date Status Comments Unknown Payers Payer name Insurance type Covered constitution party ID Authorization(s) [facility] [id number] Social History Type Description Quantity Date Captured [...] Complete OB Ultrasound > 14 Ordered Weeks (13811) Date Type Problem Goal Intervention Status Start [...]
[2017-07-23 12:31] VITALS: BMI 27.3
[2017-07-23] MEDS: MAGNESIUM SULFATE DRIP 20 GM/500 ML BAG IV SCH ×2 (13:50→23:54)
[2017-07-23 14:10] VITALS: BP 135/78; PULSE 82; RESP 16; TEMP 98.2; O2SAT 100
[~2017-07-24 01:21] MED LIST: BETAMETHASONE 30 MG/5 ML INJECTION IM SCH; CALCIUM GLUCONATE 4.65mEq/10ml INJECTION IV PRN; D5LR 1,000 ML IV SCH; LIDOCAINE 1% (10mg/ml) 2mL INJ PF SDV ID ONE; MAGNESIUM SULFATE 6gm PREMIX 6 GM/50 ML BAG IV ONE; SALINE FLUSH 10ml SYRINGE IV PRN
== END | disposition home or self-care (01) ==
LOC: MC
PROVIDERS: ADMIT Obstetrics & Gynecology; ATTEND Obstetrics & Gynecology

== ENCOUNTER 2017-10-20 06:27 | Inpatient (IN) ==
--- OUTSIDE RECORDS SUMMARY | 2017-10-20 06:31 | External Medical Summary | Continuity of Care Document ---
:1990 Author Organization [facility] [place] Address [address] [place] [address] [phone] Phone Care Team Providers Name Role Phone [...] w poor reprodctv or - obstet hx, third tri Supervision of other high risk - pregnancies, third trimester Previous Low Transverse - 30 weeks gestation of - Supervision of other [...] pregnancies, second trimester Previous Low Transverse - Personal history of oth diseases of - the female genital tract Suprvsn of preg w poor reprodctv or [...] w poor reprodctv or - obstet hx, third tri Supervision of other high risk - pregnancies, third trimester Previous Low Transverse - 33 weeks gestation of - Suprvsn of preg w poor reprodctv or - obstet hx, third tri Supervision of other high risk - pregnancies, third trimester Previous Low Transverse - Personal history of oth diseases of - the female genital tract Suprvsn of preg w poor reprodctv or - obstet hx, third tri Supervision of other high risk - pregnancies, third trimester Previous Low Transverse - Personal history of oth diseases of - the female genital tract Suprvsn of preg w poor reprodctv or - obstet hx, third tri Supervision of other high risk - pregnancies, third trimester Previous Low Transverse - 29 weeks gestation of - Suprvsn of preg w poor reprodctv or - obstet hx, third tri Supervision of other high risk - pregnancies, third trimester Previous Low Transverse - Personal history of oth diseases of - the female genital tract Suprvsn of preg w poor reprodctv or - obstet hx, third tri Supervision of other high risk - pregnancies, third trimester Previous Low Transverse - 31 weeks gestation of - Supervision of other high risk - pregnancies, first trimester Previous Low Transverse - 10 weeks gestation of - Personal history of oth diseases of - the female genital tract Procedures Procedure Date 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 Health PA, obstet hx, third 8 700 [address] triSupervision of Medical 1522, other high risk Center [facility] pregnancies, Shamar Gilman, third 120, , trimesterPrevious [place], tel:[phone] C-SectionPersonal [phone] history of oth , [place]. diseases of the tel: female genital [phone] tract [facility] [place] Suprvsn of preg w b-1 Joel In Womens Ultrasound poor reprodctv or 2-201 Bhavani. Health PA, obstet hx, third 8 700 PO Box triSupervision of Medical 1522, other high risk Center [place], pregnancies, Shamar Gilman, third 120, [id number], trimesterPrevious [place], tel:[phone] C-[id number] weeks [phone] gestation of , [place]. tel: [phone] [facility] Suprvsn of preg w b-0 Joel In Womens poor reprodctv or 5-201 Bhavani. Health PA, obstet hx, third 8 700 PO Box triSupervision of Medical 1522, other high risk Center [place], pregnancies, Shamar Gilman [place], third 120, , trimesterPrevious [place], tel:+ C-SectionPersonal [phone] history of oth , [place] diseases of the tel: female genital [phone] tract [facility] [place] Suprvsn of preg w Aug-3 Joel In Womens poor reprodctv or 1-201 Bhavani. Health SERVANDO, obstet hx, third 8 700 PO Box triSupervision of Medical 1522, other high risk Center [place], pregnancies, Shamar Gilman, third 120, , trimesterPrevious [place], tel:+ C-[id number] weeks [phone] [id number] gestation of , [place]. tel: [phone] Pb [place] Suprvsn of preg w Aug-2 Joel In Womens poor reprodctv or 2-201 Bhvaani. Health SERVANDO, obstet hx, third 8 700 PO Box triSupervision of Medical 1522, other high risk Center [place], pregnancies, Shamar Gilman, third 120, , trimesterPrevious [place], tel:+ C-[id number] weeks [phone] [id number] gestation of , [place]. tel: [phone] Pb [place] Suprvsn of preg w Aug-1 Joel In Womens poor reprodctv or 5-201 Bhavani. Health SERVANDO obstet hx, third 8 700 PO Box triSupervision of Medical 1522, other high risk Center [place], pregnancies, Shamar Gilman, third 120, [id number], trimesterPrevious [place], tel:[phone] C-Jbcoore98 weeks [phone] gestation of , [place]. tel: [phone] [facility] Suprvsn of preg w Aug-0 Joel Referring In Womens poor reprodctv or 8-201 Bhavani. Provider: Jovan AL obstet hx, third 8 700 Bhavani PO Box triSupervision of Medical Joel L, 1522, other high risk Center 700 [place], pregnancies, , Shamar TATUM, third 120, Center , trimesterPrevious [place] [facility] 120, [place] Low Transverse [place], tel: C-SectionPersonal [id number] [place], history of oth , [place]. [id number]. diseases of the tel: tel: female genital [phone] tract [facility] Suprvsn of preg w Joel In Womens poor reprodctv or 3-201 Bhavani. Health PA, obstet hx, second 7 700 PO Box triSupervision of Medical 1522, other high risk Center [place], pregnancies, Shamar Gilman, second 120, , trimesterPrevious [place], [place], tel: C-SectionPersonal history of oth , [place] diseases of the tel: female genital [phone] tract Pb [place] Personal history Coleman Referring In Womens of oth diseases 1 Kendy. Provider: Health PA, of the female 7 700 Bhavani PO Box genital tract Medical [facility], 1522, Center 700 [place], , Shamar Ramsey [place], 120, Center , [facility] 120, Nolan TAT[place], tel:[phone] [place], , [place]. [id number]. tel: tel: [phone] Pb [place] Suprvsn of preg w Nov-2 Joel In Womens poor reprodctv or 7-201 Bhavani. Health PA, obstet hx, second 7 700 PO Box triSupervision of Medical 1522, other high risk Center [place], pregnancies, Shamar Gilman, second 120, , trimesterPrevious [place], [place], tel: C-Ecbguex22 weeks [phone] 196790 gestation of , [place]. tel: [phone] Pb [place] Suprvsn of preg w Nov-0 Joel In Womens poor reprodctv or 8-201 Bhavani. Health PA, obstet hx, second 7 700 PO Box triSupervision of [facility] 1522, other high risk Center [place], pregnancies, Shamar Gilman, second 120, [id number], trimesterPrevious [place], [place], tel:+ C-Tmeehae21 weeks [phone] 196790 gestation of , [place]. tel: [phone] [facility] Suprvsn of preg w Nov-0 Joel In Womens Ultrasound poor reprodctv or 8-201 Bhavani. Health PA, obstet hx, second 7 700 PO Box triSupervision of Medical 1522, other high risk Center [place], pregnancies, Shamar Gilman, second 120, , trimesterPrevious [place], tel:+ C-Jqpcokw10 weeks [phone] 196790 gestation of , [place]. tel: [phone] [facility] Suprvsn of preg w Oct-0 Joel In Womens poor reprodctv or 4-201 Bhavani. Health PA, obstet hx, second 7 700 PO Box triSupervision of [facility] 1522, other high risk Center [place], pregnancies, Shamar Gilman, second 120, , trimesterPrevious [place], [place], tel: C-Eackujb91 weeks [phone] 196790 gestation of , [place]. tel: [phone] Pb [place] Supervision of Sep-0 Joel In Womens other high risk 6-201 Bhavani. Health PA, pregnancies, 7 700 PO Box first Medical 1522, trimesterPrevious [facility], Low Transverse Shamar Gilman, C-Deiemam73 weeks 120, , gestation of [place], tel:[phone] , [place]. tel: [phone] Pb [place] Supervision of Aug-2 Joel In Womens other high risk 3-201 Bhavani. Health PA, pregnancies, 7 700 PO Box first Medical 1522, trimesterLess [facility], than 8 weeks Shamar Gilman, gestation of 120, , [place], tel:[phone] , [place]. tel: [phone] [facility] Supervision of Joel In Womens other high risk 0-201 Bhavani. Health PA, pregnancies, 7 700 PO Box first Medical 1522, [facility] shanika Sarmiento of other high Shamar Gilman [place], risk pregnancies, 120, [id number], first trimester [place], tel:[phone] , [place]. tel: [phone] Family History Family Member Diagnosis Age At Onset Paternal Grandmother Hypertension Maternal Grandmother Hypertension Maternal Grandmother Thyroid Disorder Maternal Grandfather Lung Disease Maternal Grandmother Cardiovascular Disease Mother Thyroid Disorder Mother Hypertension Immunizations Vaccine Date Status Comments Influenza, injectable, completed Source: New Immunization Record quadrivalent, preservative free, 3 yrs or older Payers Payer name Insurance type Covered constitution party ID Authorization(s) [employer] CI [id number] [employer] CI [id number] Social History Type Description Quantity Date Captured Alcohol Use Details No Caffeine Use Details Unknown Tobacco Use Status Unknown Smoking Status Never smoker Vital Signs Date / Height Weight BMI Pulse Blood Temperature Respiratory Body Head BMI Time: Rate Pressure Rate Surface Circumference percentile Area 181.20 30.1 lbs 5 mm[Hg] 4:24 kg/m PM eter (2) Chief Complaint And Reason For Visit Unknown Chief Complaint And Reason For Visit Reason For Referral Reason For Referral Unknown Plan Of Care Date Type Action Status Appointment Jemima Brothers BOOKED Appointment Jemima Brothers BOOKED Appointment Jemima Brothers BOOKED Appointment Jemima Brothers BOOKED Appointment Jemima Brothers BOOKED Appointment Jemima Brothers BOOKED Appointment Jemima Brothers BOOKED Appointment Jemima Brothers BOOKED Appointment Jemima Brothers BOOKED Appointment Jemima Brothers BOOKED Appointment Jemima Brothers BOOKED Appointment Jemima Brothers BOOKED Appointment Jemima Brothers BOOKED Appointment Jemima Brothers BOOKED Future Order: Radiology Order Complete OB Ultrasound > 14 Ordered Weeks ([id number]) Future Order: Radiology Order Ultrasound OB Follow-up ([id number]) Ordered Future Order: Radiology Order Biophysical Profile without NST Ordered ([id number]) Date Type Problem Goal Intervention Status Start [...]
--- OUTSIDE RECORDS SUMMARY | 2017-10-20 06:32 | External Medical Summary | Continuity of Care Document ---
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 Health SERV[place], obstet hx, third 8 700 PO Box triSupervision of Medical 1522, other high risk Center [place], pregnancies, Shamar Gilman [place], third 120, , trimesterPrevious [place], [place], tel:[phone] C-Mejbfex82 weeks [phone] gestation of , [place]. tel: [phone] Pb [place] Suprvsn of preg w Aug-2 Joel In Womens poor reprodctv or 2-201 Bhavani. Health SERVANDO, obstet hx, third 8 700 PO Box triSupervision of Medical 152, other high risk Center [place], pregnancies, Shamar Gilman [place], third 120, , trimesterPrevious [place], [place], tel:[phone] C-Kfbbuuo58 weeks [phone] 196790 gestation of , [place]. tel: [phone] Pb [place] Suprvsn of preg w Aug-1 Joel In Womens poor reprodctv or 5-201 Bhavani. Health SERVANDO obstet hx, third 8 700 PO Box triSupervision of Medical 1522, other high risk Center [place], pregnancies, Shamar Gilman, third 120, , trimesterPrevious [place], [place], tel:[phone] C-Vaswgrr30 weeks [phone] 196790 gestation of , [place]. tel: [phone] Pb [place] Suprvsn of preg w Geovany-0 Joel Referring In Womens poor reprodctv or 8-201 Bhavani. Provider: Health SERVANDO obstet hx, third 8 700 Bhavani PO Box triSupervision of Medical Joel L, 1522, other high risk Center 700 [place], pregnancies, Shamar Gilman [place], third 120, Center , trimesterPrevious [place] Shamar 120, [place] Low Transverse [place], tel:[phone] C-SectionPersonal [phone] [place], history of oth , [place]. [id number]. diseases of the tel: tel: female genital [phone] tract [facility] [place] Suprvsn of preg w Jul- Joel In Womens poor reprodctv or 3-201 Bhavani. Health SERVANDO, obstet hx, second 7 700 PO Box triSupervision of Medical 1522, other high risk Center [place], pregnancies, Shamar Gilman, second 120, , trimesterPrevious [place], [place], tel: C-SectionPersonal history of oth , [place]. diseases of the tel: female genital [phone] tract [facility] [place] Personal history [place] Referring In Womens of oth diseases Kendy. Provider: Jovan [place], of the female 7 700 Bhavani PO Box genital tract Medical Joel L, 1522, Center 700 [place], Shamar Gilman [place], 120, [place] , [place] Shamar 120, [place], tel:[phone] [place], , [place]. [id number]. tel: tel: [phone] Pb [place] Suprvsn of preg w Nov-2 Joel In Womens poor reprodctv or 7-201 Bhavani. Health SERVANDO, obstet hx, second 7 700 PO Box triSupervision of Medical 1522, other high risk Center [place], pregnancies, Shamar Gilman, second 120, , trimesterPrevious [place], [place], tel: C-Igvkgqf23 weeks [phone] 196790 gestation of , [place]. tel: [phone] Pb [place] Suprvsn of preg w Nov-0 Joel In Womens poor reprodctv or 8-201 Bhavani. Health SERVANDO, obstet hx, second 7 700 PO Box triSupervision of Medical 1522, other high risk Center [place], pregnancies, Shamar Gilman, second 120, [id number], trimesterPrevious [place], [place], tel: C-Ngldryv52 weeks [phone] 196790 gestation of , [place]. tel: [phone] Pb [place] Suprvsn of preg w Nov-0 Joel In Womens Ultrasound poor reprodctv or 8-201 Bhavani. Health PA, obstet hx, second 7 [address] [facility] 1522, other high risk Center [place], pregnancies, Shamar Gilman, second 120, [id number], trimesterPrevious [place], [place], tel:+ C-Ahbfxqt50 weeks [phone] 196790 gestation of , [place]. tel: [phone] Pb [place] Suprvsn of preg w Oct-0 Joel In Womens poor reprodctv or 4-201 Bhavani. Health PA, obstet hx, second 7 700 PO Box triSupervision of Medical 1522, other high risk Center [place], pregnancies, Shamar Gilman, second 120, , trimesterPrevious [place], [place], tel: C-Gligjle73 weeks [phone] 196790 gestation of , [place]. tel: [phone] Pb [place] Supervision of Sep-0 Joel In Womens other high risk 6-201 Bhavani. Health PA, pregnancies, 7 700 PO Box first Medical 1522, trimesterPrevious [facility], Low Transverse Shamar Gilman, C-Vhikozx64 weeks 120, , gestation of [place], tel:[phone] , [place]. tel: [phone] Pb [place] Supervision of Aug-2 Joel In Womens other high risk 3-201 Bhavani. Health PA, pregnancies, 7 700 PO Box first Medical 1522, trimesterLess [facility], than 8 weeks Shamar Gilman, gestation of 120, , [place], [place], tel:[phone] , [place]. tel: [phone] Pb [place] Supervision of Aug-1 Joel In Womens other high risk 0-201 Bhavani. Health PA, pregnancies, 7 700 PO Box first Medical 1522, trimesterSupervis [facility], ion of other high Shamar Gilman, risk pregnancies, 120, [id number], first trimester [place], tel:[phone] , [place]. tel: [phone] Family History Family Member Diagnosis Age At Onset Paternal Grandmother Hypertension Maternal Grandmother Hypertension Maternal Grandmother Thyroid Disorder Maternal Grandfather Lung Disease Maternal Grandmother Cardiovascular Disease Mother Thyroid Disorder Mother Hypertension Immunizations Vaccine Date Status Comments Influenza, injectable, completed Source: New Immunization Record quadrivalent, preservative free, 3 yrs or older Payers Payer name Insurance type Covered green party ID Authorization(s) [facility] CI [id number] [facility] CI [id number] Social History Type Description Quantity Date Captured Alcohol Use Details No Caffeine Use Details Unknown Tobacco Use Status Unknown Smoking Status Never smoker Vital Signs Date / Height Weight BMI Pulse Blood Temperature Respiratory Body Head BMI Time: Rate Pressure Rate Surface Circumference percentile Area 181.00 30.1 134/81 -2018 lbs 2 mm[Hg] 4:20 kg/m PM eter (2) Chief Complaint And Reason For Visit Unknown Chief Complaint And Reason For Visit Reason For Referral Reason For Referral Unknown Plan Of Care Date Type Action Status Appointment Jem[facility] Brothers BOOKED Appointment Jemima Brothers BOOKED Appointment J[facility] Brothers BOOKED Appointment Jemima Brothers BOOKED Future Order: Radiology Order Complete OB Ultrasound > 14 Ordered Weeks ([id number]) Date Type Problem Goal Intervention Status Start [...]
[2017-10-20] MEDS ORDERED: CITRIC ACID/SODIUM CITRATE 30ml PO ONE (07:02)
[2017-10-20] MEDS ORDERED: CEFAZOLIN PREMIX (MC ONLY) 2 GM/50 ML BAG IV ONE (07:02)
[2017-10-20] MEDS ORDERED: FAMOTIDINE PB 20 MG/50 ML BAG IV ONE (07:02)
[2017-10-20] MEDS: LR 1,000 ML IV SCH ×3 (07:27→16:53)
[2017-10-20 07:46] VITALS: BMI 31.8
--- NOTE | 2017-10-20 08:36 | Anesthesia Preoperative Report ---
Anesthesia Epidural/Spinal Rec - Date and Time Date: 10/20/17 Preoperative Diagnosis: c section Procedure: Plan: Spinal - Vital Signs Vital Signs: Pulse Rate 96 10/20/17 07:46 Respiratory Rate 18 10/20/17 07:46 Blood Pressure 136/89 10/20/17 07:46 Pulse Oximetry 99 10/20/17 07:46 /Para: P:1 - Medictaions & Allergies Inpatient Medications: Current Medications Lactated Ringer's (Lactated Ringers) 1,000 mls @ 999 mls/hr IV .Q1H1M [facility] Last Admin: 10/20/17 07:27 Dose: 999 mls/hr Isopropyl Alcohol (Nozin Nasal Swab) 1 each GRACIELA 0600,1400,2200 [facility] Allergies/Adverse Reactions: Allergies Allergy/AdvReac Type Severity Reaction Status Date / Time No Known Allergies Allergy Verified 07/23/17 12:27 - Home Medications Home Medications: Home Medications Medication Instructions Recorded Confirmed Type Aspirin 1 tab PO DAILY 07/23/17 07/23/17 History Dha 1 tab PO DAILY 07/23/17 07/23/17 History Tylenol 10/11/17 History - Medical History Other History: Reports: Now - Surgical History Reproductive Surgery/Treatment: Reports: Section - Social History Smoking Status: Former smoker Second Hand Exposure: Yes Substance Use Type: does not use Alcohol Intake Frequency: does not drink Hx Chewing Tobacco Use: No - Pertinent Findings Lab Data: CBC and BMP 10/20/17 07:22 10/20/17 07:22 BMP 10/20/17 07:22 Sodium 140 Potassium 3.7 Chloride 109 H Carbon Dioxide 23 BUN 6.0 L Creatinine 0.6 L Glucose 77 Calcium 9.0 Liver Function 10/20/17 Range/Units 07:22 Total Bilirubin 0.20 (0.20-1.30) MG/DL AST 19 (14-36) U/L ALT 30 (9-52) U/L Alkaline Phosphatase 169 H (38-126) U/L Albumin 3.3 L (3.5-5.0) g/dL - Physical Exam Respiratory Exam: lungs clear Cardiovascular Exam: regular rate and rhythm, no murmur - Airway Assessment Mallampati Score: I TMD: 3 Fingerbreadths Neck Extension: good Teeth: chipped teeth/crowns Overall Assessment: no airway concerns - ASA ASA Score: 2 - Discussion Discussion: Discussed risks/options/alternatives of anesthesia and questions answered. Patient consents. Nursing pain assessment noted. Anesthesia Discussion: spouse, family member Attestation Statement: Prior to the delivery of any anesthetic medication, I examined the patient, developed the plan, obtained the patient's consent and discussed the risk and benefits of the procedure with the patient/guardian.
[2017-10-20] MEDS ORDERED: FentaNYL 100 MCG/2 ML INJECTION ONE (08:43)
[2017-10-20] MEDS ORDERED: MORPHINE SULFATE PF 5mg/10ml INJ (Duramorph) ONE (08:44)
[2017-10-20] MEDS ORDERED: OXYTOCIN BOLUS BAG 30 UNIT/500 ML ML IV SCH (09:20)
--- NOTE | 2017-10-20 11:36 | Anesthesia Postoperative Note ---
- Date and Time Date: 10/20/17 Time: 11:36 - Status Patient Participated in Evaluation: Patient Participated in Person Vital Signs: Pulse Rate 96 10/20/17 07:46 Respiratory Rate 18 10/20/17 07:46 Blood Pressure 136/89 10/20/17 07:46 Pulse Oximetry 99 10/20/17 07:46 Respiratory Function: Airway Patent Cardiovascular Function: Regular Pulse Mental Status: Alert and Oriented Pain Intensity: 0 Hydration: Taking PO Fluids Complications During Recover: None Apparent - Follow-Up Instructions Instructions: Per Surgeon
--- NOTE | 2017-10-20 12:08 | Operative Note ---
DATE OF OPERATION 10/20/2017 PREOPERATIVE DIAGNOSIS 1. Term . 2. Previous x1. 3. Preeclampsia with mild features. 4. Prior poor outcome. POSTOPERATIVE DIAGNOSIS 1. Term . 2. Previous x1. 3. Preeclampsia with mild features. 4. Prior poor outcome. PROCEDURES Repeat low transverse section. SURGEON Bhavani Maldonado MD HYDROGENATION OPERATOR Jsoeph León, Pharmacy Benefit Manager ANESTHESIA Combo spinal/epidural. TRACK MAN Kp Meredith CRNA EBL 500 mL OPERATIVE FINDINGS Normal anatomy. DESCRIPTION OF PROCEDURE Ms. Brothers was brought to the OR and given regional analgesia to good effect. She was then placed in the supine position with left lateral displacement. A Gaines catheter was placed to dependent drain. The abdomen was prepped and draped in the usual sterile fashion. A Pfannenstiel skin incision was made with a sharp knife. This was carried down to fascia. Fascia was incised transversely. Fascia was tented up. This was bluntly and sharply dissected free of rectus muscles. Rectus muscles were bluntly divided. The peritoneum was tented up and sharply entered. This was extended vertically. The bladder was well below our area of operation. I then made a low transverse uterine incision in the uterus. There was clear amniotic fluid. Baby was delivered in the vertex presentation without difficulty. Baby was bulb suctioned on the ?? perineum??. There is a loose nuchal cord x1 that was reduced prior to delivery. The cord was doubly clamped and cut and the baby was given to Dr. Bailey and his team for care. This is a liveborn female with Apgars of 8/9. She weighed 5 pounds, 12.5 ounces. The placenta was then expressed intact. It had a normal configuration and normal-appearing three-vessel cord. The uterine cavity was swept clear of membranes and the uterus was exteriorized. We then reapproximated the myometrial incision with a running locking 0 Monocryl. We inspected carefully for hemostasis. This was under good control. Uterus, tubes and ovaries were grossly normal and were returned to the abdominal cavity. We reinspected the at every level of surgery, making sure hemostasis remained under good control throughout the procedure. Peritoneum was then reapproximated with 2-0 Vicryl in a running nonlocking fashion. Fascia was reapproximated with a running nonlocking 0 Vicryl. Skin edges were reapproximated with a subcuticular style 3-0 undyed Vicryl. The wound was dressed with Steri-Strips and a sterile dressing. Counts were correct postoperatively x2. The urine remained clear and free-flowing throughout the procedure. Ms. Brothers has been transferred to recovery now. She is in stable condition as is the baby. FORREST
[2017-10-20] MEDS ORDERED: D5LR 1,000 ML IV SCH (13:02)
[2017-10-20] MEDS ORDERED: SIMETHICONE 80 MG CHEWABLE TABLET PO PRN (13:02)
[2017-10-20] MEDS ORDERED: DiphenhydrAMINE 25 MG CAPSULE PO PRN (13:02)
[2017-10-20] MEDS ORDERED: CALCIUM CARBONATE Chewable 500mg TABLET PO PRN (13:02)
[2017-10-20] MEDS ORDERED: ACETAMINOPHEN 500 MG TABLET PO PRN (13:02)
[2017-10-20] MEDS ORDERED: NALOXONE 2 MG/2 ML INJECTION PFS IVP PRN (13:02)
[2017-10-20] MEDS ORDERED: ONDANSETRON 4 MG/2 ML INJECTION IVP PRN (13:02)
[2017-10-20] MEDS ORDERED: HYDROCORTISONE 2.5% CREAM 30gm RECTALLY PRN (13:02)
[2017-10-20] MEDS ORDERED: NALBUPHINE 10 MG/ML INJECTION IVP PRN (13:02)
[2017-10-20] MEDS ORDERED: DiphenhydrAMINE 50 MG/ML INJECTION IVP PRN (13:02)
[2017-10-20] MEDS ORDERED: OXYTOCIN DRIP 30 UNIT/500 ML ML IV SCH (13:02)
[2017-10-20] MEDS: HYDROCODONE/APAP 5mg/325mg TABLET PO PRN ×3 (13:08→21:12)
[2017-10-20] MEDS ORDERED: NOZIN NASAL SWAB NAS SCH (14:00)
[2017-10-20] MEDS: SIMETHICONE 80 MG CHEWABLE TABLET PO SCH ×3 (16:36→21:14)
[2017-10-21] MEDS: IBUPROFEN 800 MG TABLET PO PRN ×3 (05:01→22:57)
[2017-10-21] MEDS: DOCUSATE CALCIUM 240 MG CAPSULE PO SCH ×2 (05:04→10:31)
--- NOTE | 2017-10-21 10:27 | Progress Note ---
OB PP Progress Note Free Text - Date Date: 10/21/17 - Progress Note Progress Note: POD #1 vss af a few bp's still in mild range carbera out and voiding ok labs ok Cont on current care path q&a-krb Note for FOB to be off 1 wk to help at home.
[2017-10-21] MEDS: SIMETHICONE 80 MG CHEWABLE TABLET PO SCH ×4 (11:30→22:57)
[2017-10-22] MEDS: DOCUSATE CALCIUM 240 MG CAPSULE PO SCH (10:15)
[2017-10-22] MEDS: IBUPROFEN 800 MG TABLET PO PRN (10:15)
[2017-10-22] MEDS: SIMETHICONE 80 MG CHEWABLE TABLET PO SCH (10:15)
[2017-10-22 10:56] VITALS: BP 132/86; PULSE 94; RESP 16; TEMP 98.2; O2SAT 99
--- NOTE | 2017-10-22 12:25 | Progress Note ---
OB PP Progress Note Free Text - Date Date: 10/22/17 - Progress Note Progress Note: vss af bp's wnl incision c/d/i declines pain meds plans dc today - instructions given f/u in 1-2 wks
== END 2017-10-22 13:40 | disposition home or self-care (01) | DRG 766 ==
LOC: NMC.PERIOP 06:27
PROVIDERS: ADMIT Obstetrics & Gynecology; ATTEND Obstetrics & Gynecology